=== PATIENT | female | born 1965 | race Caucasian/White ===

== ENCOUNTER 2020-05-29 13:18 | Observation (INO) | payer BC ==
[2020-05-29] MEDS ORDERED: SODIUM CHLORIDE 0.9% 1,000 ML IV STA (14:10)
[2020-05-29] MEDS ORDERED: MORPHINE SULFATE 4 MG/ML SYRINGE IV STA (14:10)
[2020-05-29] MEDS ORDERED: ONDANSETRON 4 MG/2 ML VIAL IVP STA (14:10)
--- NOTE | 2020-05-29 14:14 | ED ---
Abdominal Pain HPI - General Chief Complaint: Abdominal Pain Stated Complaint: Female Time Seen by Provider: 05/29/20 14:00 Source: patient, RN notes reviewed Mode of arrival: ambulatory Limitations: no limitations - History of Present Illness Initial Comments: Patient is a 53-year-old female comes emergency Department complaining of constipation. She noted that she tried taking several laxatives, milk of magnesia and other things to help move her bowel. She noted 90s helped in that she's been having small little bowel movements with mucus. She denied having any blood in her stool. She noted that she is having 10 out of 10 pain that is nonradiating and generalized. She noted that nothing is made the pain better and nothing makes the pain worse. Patient appeared in mild distress and pain while sitting up in bed. He says she had a history of constipation and bowel movement issues but can usually get things going with xtoz-osx-tkzxlxr remedies. He did state that she was nauseous and vomited once but is currently feeling a little bit better. She denied any chest pain shortness of breath diarrhea change in diet change in appetite change in weight headache fever fatigue chills - Related Data Allergies Allergy/AdvReac Type Severity Reaction Status Date / Time No Known Allergies Allergy Verified 05/29/20 16:50 Review of Systems ROS Statement: Those systems with pertinent positive or pertinent negative responses have been documented in the HPI. ROS Other: All systems not noted in ROS Statement are negative. Past Medical History Past Medical History: No Reported History History of Any Multi-Drug Resistant Organisms: None Reported Past Surgical History: Hysterectomy, Orthopedic Surgery Past Psychological History: No Psychological Hx Reported Smoking Status: Never smoker Past Alcohol Use History: Occasional Past Drug Use History: None Reported General Exam Limitations: no limitations General appearance: alert, in no apparent distress Head exam: Present: atraumatic, normocephalic, normal inspection Eye exam: Present: normal appearance, PERRL, EOMI. Absent: scleral icterus, conjunctival injection, periorbital swelling ENT exam: Present: normal exam, mucous membranes moist Neck exam: Present: normal inspection. Absent: tenderness, meningismus, lymphadenopathy Respiratory exam: Present: normal lung sounds bilaterally. Absent: respiratory distress, wheezes, rales, rhonchi, stridor Cardiovascular Exam: Present: regular rate, normal rhythm, normal heart sounds. Absent: systolic murmur, diastolic murmur, rubs, gallop, clicks GI/Abdominal exam: Present: soft, tenderness (Left middle quadrant In the lower abdomen on mild to moderate palpation), hypoactive bowel sounds. Absent: distended, guarding, rebound, rigid Extremities exam: Present: normal inspection, full ROM, normal capillary refill. Absent: tenderness, pedal edema, joint swelling, calf tenderness Neurological exam: Present: alert, oriented X3, CN II-XII intact Psychiatric exam: Present: normal affect, normal mood Skin exam: Present: warm, dry, intact, normal color. Absent: rash Course Vital Signs 05/29/20 13:52 Temperature 98.3 F Pulse Rate 113 H Respiratory 18 Rate Blood Pressure 101/59 O2 Sat by Pulse 97 Oximetry - Reevaluation(s) Reevaluation #1: 05/29/20 15:54 Sepsis called at 3:55 PM due to elevated white count and tachycardia. Medical Decision Making - Medical Decision Making 54-year-old female comes emergency room complaining of constipation and abdominal pain. Labs, CT ordered Pain and nausea medication ordered. Elevated white count and tachycardic. Discussed case with Dr. Juárez, decided to admit patient for further evaluation - Lab Data Result diagrams: 05/29/20 14:17 05/29/20 14:17 Lab Results 05/29/20 05/29/20 05/29/20 Range/Units 14:17 14:17 14:17 WBC 18.5 H (3.8-10.6) k/uL RBC 5.06 (3.80-5.40) m/uL Hgb 16.2 H (11.4-16.0) gm/dL Hct 48.5 H (34.0-46.0) % MCV 95.8 (80.0-100.0) fL MCH 32.1 (25.0-35.0) pg MCHC 33.5 (31.0-37.0) g/dL RDW 11.7 (11.5-15.5) % Plt Count 297 (150-450) k/uL MPV 6.6 Neutrophils % 85 % Lymphocytes % 9 % Monocytes % 5 % Eosinophils % 1 % Basophils % 0 % Neutrophils # 15.7 H (1.3-7.7) k/uL Lymphocytes # 1.7 (1.0-4.8) k/uL Monocytes # 0.8 (0-1.0) k/uL Eosinophils # 0.2 (0-0.7) k/uL Basophils # 0.1 (0-0.2) k/uL Sodium 137 (137-145) mmol/L Potassium 3.7 (3.5-5.1) mmol/L Chloride 100 (98-107) mmol/L Carbon Dioxide 29 (22-30) mmol/L Anion Gap 8 mmol/L BUN 19 H (7-17) mg/dL Creatinine 0.73 (0.52-1.04) mg/dL Est GFR (CKD-EPI)AfAm >90 (>60 ml/min/1.73 sqM) Est GFR (CKD-EPI)NonAf >90 (>60 ml/min/1.73 sqM) Glucose 98 (74-99) mg/dL Plasma Lactic Acid Tashi 1.3 (0.7-2.0) mmol/L Calcium 10.0 (8.4-10.2) mg/dL Total Bilirubin 0.4 (0.2-1.3) mg/dL AST 35 (14-36) U/L ALT 57 H (4-34) U/L Alkaline Phosphatase 100 (38-126) U/L Total Protein 7.9 (6.3-8.2) g/dL Albumin 4.8 (3.5-5.0) g/dL Amylase 227 H (30-110) U/L Lipase 248 (23-300) U/L - Radiology Data Radiology results: report reviewed, image reviewed Correlate for colitis. Postop changes. Small amount of free fluid in pelvis. Disposition Clinical Impression: Abdominal pain, Colitis Disposition: ADMITTED IP TO THIS HOSP Condition: Stable Is patient prescribed a controlled substance at d/c from ED?: No Referrals: None,Stated [Primary Care Provider] - 1-2 days Time of Disposition: 16:51
[2020-05-29 14:26] LABS: Basophils # (A) 0.1 k/uL (0-0.2); Basophils % (A) 0 %; Eosinophils # (A) 0.2 k/uL (0-0.7); Eosinophils % (A) 1 %; HCT 48.5 % (34.0-46.0); HGB 16.2 gm/dL (11.4-16.0); Lymphocytes # (A) 1.7 k/uL (1.0-4.8); Lymphocytes % (A) 9 %; MCH 32.1 pg (25.0-35.0); MCHC 33.5 g/dL (31.0-37.0); MCV 95.8 fL (80.0-100.0); Mean Platelet Volume 6.6; Monocytes # (A) 0.8 k/uL (0-1.0); Monocytes % (A) 5 %; Neutrophils # (A) 15.7 k/uL (1.3-7.7); Neutrophils % (A) 85 %; Platelet Count 297 k/uL (150-450); RBC 5.06 m/uL (3.80-5.40); RDW 11.7 % (11.5-15.5); WBC 18.5 k/uL (3.8-10.6)
[2020-05-29 14:36] LABS: ALT 57 U/L (4-34); AST 35 U/L (14-36); African American GFR (CKD) >90 (>60 ml/min/1.73 sqM); Albumin 4.8 g/dL (3.5-5.0); Alkaline Phosphatase 100 U/L (38-126); Amylase 227 U/L (30-110); Anion Gap 8 mmol/L; Blood Urea Nitrogen 19 mg/dL (7-17); Carbon Dioxide 29 mmol/L (22-30); Chloride 100 mmol/L (98-107); Glucose 98 mg/dL (74-99); Lipase 248 U/L (23-300); Non-African American GFR(CKD) >90 (>60 ml/min/1.73 sqM); Potassium 3.7 mmol/L (3.5-5.1); Sodium 137 mmol/L (137-145); Total Bilirubin 0.4 mg/dL (0.2-1.3); Total Protein 7.9 g/dL (6.3-8.2)
--- NOTE | 2020-05-29 15:28 | CT ---
EXAMINATION TYPE: CT abdomen pelvis w con DATE OF EXAM: 05/29/2020 COMPARISON: None HISTORY: midline suprapubic pelvic pain CT DLP: 582 mGycm Automated exposure control for dose reduction was used. TECHNIQUE: Helical acquisition of images from the lung bases through the pelvis have been completed. CONTRAST: Performed without Oral Contrast and with IV Contrast, patient injected with 100 mL of Isovue 300. FINDINGS: LUNG BASES: No significant abnormality is appreciated. AORTA: No significant abnormality is appreciated. LIVER/GB: No significant abnormality is appreciated. PANCREAS: No significant abnormality is seen. SPLEEN: No significant abnormality is seen. ADRENALS: No significant abnormality is seen. KIDNEYS: No significant abnormality is seen. REPRODUCTIVE ORGANS: Uterus and adnexal structures are not seen. Surgical clips are present deep to t he lower abdominal wall musculature BOWEL: Colonic wall thickening present in the rectosigmoid, large amount of retained fecal debris is present throughout much of the more proximal colon, the level of the descending colon, axial image # 49, coronal image #50 there is a relative narrowing which is thought likely to be transient. FREE AIR: No Free Air visible. ASCITES: Small amount of free fluid present in the pelvis.. PELVIC ADENOPATHY: None visualized. RETROPERITONEAL ADENOPATHY: No Retroperitoneal Adenopathy visible. URINARY BLADDER: No significant abnormality is seen. OSSEOUS STRUCTURES: There is a spinal curvature. Lumbarization of L5 is suspected, L1 show some catina mentary ribs.. IMPRESSION: CORRELATE FOR COLITIS. POSTOP CHANGES. SMALL AMOUNT OF FREE FLUID IN THE PELVIS.
[2020-05-29 16:36] LABS: Appearance,Urine Clear (Clear); Bilirubin,Urine Negative (Negative); Blood,Urine Small (Negative); Color,Urine Yellow; Glucose,Urine (UA) Negative (Negative); Ketones,Urine Trace (Negative); Leukocyte Esterase,Urine Negative (Negative); Nitrite,Urine Negative (Negative); Protein,Urine Negative (Negative); RBC,Urine 4 /hpf (0-5); Squamous Epithelial Cell,Urine <1 /hpf (0-4); Urobilinogen,Urine <2.0 mg/dL (<2.0); WBC,Urine 1 /hpf (0-5)
[2020-05-29 16:38] LABS: Specific Gravity,Urine >1.050 (1.001-1.035)
[2020-05-29] MEDS ORDERED: NALOXONE 0.4 MG/ML 1 ML VIAL IV PRN ×2 (16:48→17:11)
[2020-05-29] MEDS ORDERED: ONDANSETRON 4 MG/2 ML VIAL IVP PRN (16:48)
[2020-05-29] MEDS ORDERED: HYDROmorphone 1 MG/ML 1 ML SYRINGE IVP STA (16:50)
[2020-05-29] MEDS ORDERED: KETOROLAC 15 MG/ML 1 ML VIAL IVP STA (17:05)
[2020-05-29] MEDS ORDERED: ACETAMINOPHEN TAB 325 MG TAB PO PRN (17:11)
[2020-05-29] MEDS ORDERED: DOCUSATE 100 MG CAP PO PRN (17:11)
[2020-05-29] MEDS: SODIUM CHLORIDE 0.9% 1,000 ML IV SCH (17:11)
[2020-05-29] MEDS ORDERED: CAFF PO PRN (17:14)
[2020-05-29] MEDS ORDERED: BUTALB PO PRN (17:14)
[2020-05-29] MEDS ORDERED: ASPRIN PO PRN (17:14)
[2020-05-29] MEDS: metroNIDAZOLE-NS PMX 500 MG in SALINE 1 100ML.BAG IVPB SCH (17:22)
--- NOTE | 2020-05-29 18:13 | P.HPIM ---
History of Present Illness H&P Date: 05/29/20 Chief Complaint: abdominal pain 54 year old woman with history of movwdtot-dkqbbmmgyo-igbemqxefnhb on estradiol, anxiety/depression, HLD, and migraines presented for abdominal pain of sudden onset today. She describes pain as sharp to aching in nature. This is associated with mucous-like stool, with small amounts passing through over last 1-2 weeks. She had an episode of nausea/vomiting with emesis described as white/mucousy. She denies hematemesis/hematochezia/melena. She reports chills, but denies fevers. She denies chest pain, palps, syncope, presycnope, dizzi ness, dysuria, numbness/weakness of extremities. Pt provided me limited history otherwise at bedside due to being in distress from pain. She was evaluated by the ER, and CT scan demonstrated colitis with free fluid in the pelvis, as well as post-surgical changes of her hysterectomy. Lab work demo nstrated leukocytosis to 18, lactate was normal. She was started on broad spectrum abx and admitted for further work up. Review of Systems All Systems reviewed and pertinent positives and negatives noted in HPI, all other symptoms are negative Past Medical History Past Medical History: No Reported History History of Any Multi-Drug Resistant Organisms: None Reported Past Surgical History: Hysterectomy, Orthopedic Surgery Past Psychological History: No Psychological Hx Reported Smoking Status: Never smoker Past Alcohol Use History: Occasional Past Drug Use History: None Reported Medications and Allergies Home Medications Medication Instructions Recorded Confirmed Type Acyclovir [Zovirax] 400 mg PO DAILY 05/29/20 05/29/20 History Butalb/Asprin/Caff 50-325-40Mg 1 cap PO QID PRN 05/29/20 05/29/20 History [Fiorinal 50-325-40 MG] Estradiol [Estrace] 1 mg PO DAILY 05/29/20 05/29/20 History Meloxicam [Mobic] 7.5 mg PO HS 05/29/20 05/29/20 History Pantoprazole [Protonix] 40 mg PO DAILY 05/29/20 05/29/20 History Rosuvastatin Calcium [Crestor] 40 mg PO DAILY 05/29/20 05/29/20 History SUMAtriptan succinate [Imitrex] 50 mg PO DAILY PRN 05/29/20 05/29/20 History Vortioxetine Hydrobromide 20 mg PO HS 05/29/20 05/29/20 History [Trintellix] tiZANidine [Zanaflex] 4 mg PO HS 05/29/20 05/29/20 History Allergies Allergy/AdvReac Type Severity Reaction Status Date / Time No Known Allergies Allergy Verified 05/29/20 16:50 Physical Exam Osteopathic Statement: *. No significant issues noted on an osteopathic structural exam other than those noted in the History and Physical/Consult. Vitals: Vital Signs Temp Pulse Resp BP Pulse Ox 05/29/20 13:52 98.3 F 113 H 18 101/59 97 Intake and Output 05/29/20 05/29/20 05/29/20 06:59 14:59 22:59 Other: Weight 63.503 kg Gen: awake, alert in moderate distress from pain HEENT: normocephalic, atraumatic, good hearing acuity, moist mucous membranes Resp: good air exchange, breathing comfortably with no accessory muscle use CVS: good distal perfusion x 4, GI: soft, diffusely tender palpation, predominantly in the left lower quadrant, nondistended : no SPT, no CVAT, reyes catheter not present MSK: no pitting edema, no clubbing Neuro: non-focal, moving all extremities Psych: cooperative, anxious mood Results CBC & Chem 7: 05/29/20 14:17 05/29/20 14:17 Labs: Abnormal Lab Results - Last 24 Hours (Table) 05/29/20 05/29/20 05/29/20 Range/Units 14:17 14:17 16:15 WBC 18.5 H (3.8-10.6) k/uL Hgb 16.2 H (11.4-16.0) gm/dL Hct 48.5 H (34.0-46.0) % Neutrophils # 15.7 H (1.3-7.7) k/uL BUN 19 H (7-17) mg/dL ALT 57 H (4-34) U/L Amylase 227 H (30-110) U/L Ur Specific [place] >1.050 H (1.001-1.035) Urine Ketones Trace H (Negative) Urine Blood Small H (Negative) Assessment and Plan Assessment: 1. Procto-Colitis, unspecified etiology 2. Anxiety and Depression 3. History of Jckmvhqa-dxseyxwili-qewtydxjmwvj on estrogen 4. HLD 5. Migraines 54 year old woman with history of HLD, Migraines, salpingo -oophorecto-hysterectomy on estrogen, anxiety/depression presented with 1 day of acute abdominal pain, nausea/vomiting, and 1-2 weeks of constipation despite laxitive use and was found to have procto-colitis on CT A/P with small free fluid in the pelvis; admitted for further management and started on broad spectrum antibiotics with suspicion for infectious etiology. Plan: - admit to observation - ceftriaxone/flagyl in ER --> cipro/flagyl starting 05/29 - stool culture, pending - FOBT, pending - ESR/CRP, pending - GI consult, re: r/o inflammatory bowel disease - pain control: tylenol PRN + toradol PRN + morphine/dilaudid PRN - nausea control: zofran PRN - docusate BID - IVF: LR 75cc/hr - continue home PPI - continue home trintellix, xanax PRN - continue home fioricet PRN, imitrex PRN - continue daily acyclovir - continue home estradiol Full Code DVT PPx: heparin 5000 q8h
[2020-05-29] MEDS: HYDROmorphone 1 MG/ML 1 ML SYRINGE IVP PRN (21:19)
[2020-05-29] MEDS: tiZANidine 4 MG TAB PO SCH (21:21)
[2020-05-29] MEDS: VORTIOXETINE HYDROBROMIDE 20 MG TABLET PO SCH (21:21)
[2020-05-29] MEDS: CIPROFLOXACIN/DEXTROSE PMX 400 MG in DEXTROSE/WATER 1 200ML.BAG IVPB SCH (21:21)
[2020-05-30] MEDS: HEPARIN SODIUM,PORCINE 5,000 UNIT/ML 1 ML VIAL SQ SCH ×3 (00:42→15:25)
[2020-05-30] MEDS: metroNIDAZOLE-NS PMX 500 MG in SALINE 1 100ML.BAG IVPB SCH ×3 (00:43→15:25)
[2020-05-30] MEDS: HYDROmorphone 1 MG/ML 1 ML SYRINGE IVP PRN ×2 (02:56→08:31)
[2020-05-30] MEDS: ACYCLOVIR 200 MG CAP PO SCH (08:30)
[2020-05-30] MEDS: ATORVASTATIN 80 MG TAB PO SCH (08:30)
[2020-05-30] MEDS: PANTOPRAZOLE 40 MG TABLET PO SCH (08:30)
[2020-05-30] MEDS: SODIUM CHLORIDE 0.9% 1,000 ML IV SCH ×2 (08:31→20:53)
[2020-05-30] MEDS: CIPROFLOXACIN/DEXTROSE PMX 400 MG in DEXTROSE/WATER 1 200ML.BAG IVPB SCH ×2 (08:37→20:53)
[2020-05-30 09:23] LABS: Basophils # (A) 0.02 X 10*3/uL (0.00-0.10); Basophils % (A) 0.1 %; Eosinophils # (A) 0.05 X 10*3/uL (0.04-0.35); Eosinophils % (A) 0.4 %; HCT 38.5 % (37.2-46.3); HGB 12.6 g/dL (12.0-15.0); Lymphocytes # (A) 1.02 X 10*3/uL (0.90-5.00); Lymphocytes % (A) 7.5 %; MCH 31.5 pg (27.0-32.0); MCHC 32.7 g/dL (32.0-37.0); MCV 96.3 fL (80.0-97.0); Mean Platelet Volume 9.5 fL (9.5-12.2); Monocytes # (A) 1.47 X 10*3/uL (0.20-1.00); Monocytes % (A) 10.7 %; Neutrophils # (A) 11.05 X 10*3/uL (1.80-7.70); Neutrophils % (A) 80.8 %; Platelet Count 228 X 10*3/uL (140-440); RDW 11.9 % (11.5-14.5); WBC 13.68 X 10*3/uL (4.50-10.00)
[2020-05-30 09:45] LABS: African American GFR (CKD) 114.6 (60.0-200.0); Albumin 3.7 g/dL (3.80-4.90); Albumin/Globulin Ratio 2.64 (1.60-3.17); Anion Gap 8.3 mmol/L (4.00-12.00); BUN/Creat Ratio 28.57 Ratio (12.00-20.00); C Reactive Protein 6.5 mg/dL (0.0-0.8); Calcium 8.2 mg/dL (8.7-10.3); Carbon Dioxide 26.7 mmol/L (21.6-31.8); Globulin 1.4 g/dL (1.6-3.3); Non-African American GFR(CKD) 98.9 (60.0-200.0); Potassium 4.4 mmol/L (3.5-5.5); Total Bilirubin 0.4 mg/dL (0.2-1.2); Total Protein 5.1 g/dL (6.2-8.2)
[2020-05-30] MEDS: SUMAtriptan succinate 50 MG TAB PO PRN (10:23)
--- NOTE | 2020-05-30 13:07 | P.PN ---
Subjective Progress Note Date: 05/30/20 Patients pain is much better today, still present to some degree. Had rec'd 3 doses of dilaudid since my last evaluation. Pt does report some nausea this morning. Stool sample given, pending. Objective - Vital Signs Vital signs: Vital Signs Temp 98.2 F 05/30/20 07:00 Pulse 77 05/30/20 07:00 Resp 16 05/30/20 07:00 BP 102/66 05/30/20 07:00 Pulse Ox 97 05/30/20 07:00 Intake & Output 05/29/20 05/30/20 05/30/20 18:59 06:59 18:59 Weight 63.503 kg Other: Voiding Method Toilet Toilet # Voids 3 # Bowel Movements 1 - Exam Gen: awake, alert in moderate distress from pain HEENT: normocephalic, atraumatic, good hearing acuity, moist mucous membranes Resp: good air exchange, breathing comfortably with no accessory muscle use CVS: good distal perfusion x 4, GI: soft, diffusely tender palpation, predominantly in the left lower quadrant, nondistended : no SPT, no CVAT, reyes catheter not present MSK: no pitting edema, no clubbing Neuro: non-focal, moving all extremities Psych: cooperative, anxious mood - Labs CBC & Chem 7: 05/30/20 05:54 05/30/20 05:54 Labs: Abnormal Lab Results - Last 24 Hours (Table) 05/29/20 05/29/20 05/29/20 Range/Units 14:17 14:17 16:15 WBC 18.5 H (3.8-10.6) k/uL RBC (4.10-5.20) X 10*6/uL Hgb 16.2 H (11.4-16.0) gm/dL Hct 48.5 H (34.0-46.0) % Immature Gran # (0.00-0.04) X 10*3/uL Neutrophils # 15.7 H (1.3-7.7) k/uL Monocytes # (0.20-1.00) X 10*3/uL BUN 19 H (7-17) mg/dL BUN/Creatinine Ratio (12.00-20.00) Ratio Glucose (70-110) mg/dL Calcium (8.7-10.3) mg/dL ALT 57 H (4-34) U/L C-Reactive Protein (0.0-0.8) mg/dL Total Protein (6.2-8.2) g/dL Albumin (3.80-4.90) g/dL Globulin (1.6-3.3) g/dL Amylase 227 H (30-110) U/L Ur Specific [place] >1.050 H (1.001-1.035) Urine Ketones Trace H (Negative) Urine Blood Small H (Negative) Stool Occult Blood (Negative) 05/30/20 05/30/20 05/30/20 Range/Units 02:47 05:54 05:54 WBC 13.68 H (3.8-10.6) k/uL RBC 4.00 L (4.10-5.20) X 10*6/uL Hgb (11.4-16.0) gm/dL Hct (34.0-46.0) % Immature Gran # 0.07 H (0.00-0.04) X 10*3/uL Neutrophils # 11.05 H (1.3-7.7) k/uL Monocytes # 1.47 H (0.20-1.00) X 10*3/uL BUN (7-17) mg/dL BUN/Creatinine Ratio 28.57 H (12.00-20.00) Ratio Glucose 111 H (70-110) mg/dL Calcium 8.2 L (8.7-10.3) mg/dL ALT (4-34) U/L C-Reactive Protein 6.5 H (0.0-0.8) mg/dL Total Protein 5.1 L (6.2-8.2) g/dL Albumin 3.70 L (3.80-4.90) g/dL Globulin 1.4 L (1.6-3.3) g/dL Amylase (30-110) U/L Ur Specific [place] (1.001-1.035) Urine Ketones (Negative) Urine Blood (Negative) Stool Occult Blood Positive H (Negative) Assessment and Plan Assessment: 1. Procto-Colitis, unspecified etiology 2. Anxiety and Depression 3. History of Snhdzlnw-jlzmscvkri-lnehiasldaxk on estrogen 4. HLD 5. Migraines 54 year old woman with history of HLD, Migraines, teizostg-rasadrygnm-ircviscpjugb on estrogen, anxiety/depression presented with 1 day of acute abdominal pain, nausea/vomiting, and 1-2 weeks of constipation despite laxitive use and was found to have procto-colitis on CT A/P with small free fluid in the pelvis; admitted for further management and started on broad spectrum antibiotics with suspicion for infectious etiology. Plan: - admit to observation - ceftriaxone/flagyl in ER --> cipro/flagyl starting 05/29 - stool culture, pending - FOBT, positive - ESR/CRP, pending/6.5 - GI consult, re: r/o inflammatory bowel disease, pending - pain control: tylenol PRN + toradol PRN + morphine/dilaudid PRN - nausea control: zofran PRN - docusate BID - IVF: LR 75cc/hr - continue home PPI - continue home trintellix, xanax PRN - continue home fioricet PRN, imitrex PRN - continue daily acyclovir - continue home estradiol Full Code DVT PPx: heparin 5000 q8h
--- NOTE | 2020-05-30 17:00 | XR ---
2 view abdomen HISTORY: Pain and constipation 2 views the abdomen on 3 images Lung bases are clear. There is no evident bowel obstruction or pneumoperitoneum. Bone mineralization is maintained. Postop changes are noted with bhupinder overlying the pelvis. No evident pathologic calc ification, probable phleboliths within the pelvis. IMPRESSION: Nonspecific bowel gas pattern.
[2020-05-30 17:59] LABS: Erythrocyte Sedimentation Rate 5 mm/Hr (0-30)
[2020-05-30] MEDS: KETOROLAC 15 MG/ML 1 ML VIAL IVP PRN (20:52)
[2020-05-30] MEDS: ALPRAZolam 0.25 MG TAB PO PRN (20:52)
[2020-05-30] MEDS: VORTIOXETINE HYDROBROMIDE 20 MG TABLET PO SCH (20:52)
[2020-05-30] MEDS: tiZANidine 4 MG TAB PO SCH (20:52)
[2020-05-31] MEDS: metroNIDAZOLE-NS PMX 500 MG in SALINE 1 100ML.BAG IVPB SCH ×2 (00:29→07:20)
[2020-05-31] MEDS: HEPARIN SODIUM,PORCINE 5,000 UNIT/ML 1 ML VIAL SQ SCH ×2 (00:29→07:20)
[2020-05-31] MEDS ORDERED: SODIUM CHLORIDE 0.9% 1,000 ML IV ONE (03:12)
[2020-05-31] MEDS: KETOROLAC 15 MG/ML 1 ML VIAL IVP PRN (03:17)
[2020-05-31] MEDS: ALPRAZolam 0.25 MG TAB PO PRN (03:47)
[2020-05-31 07:38] VITALS: BP 100/60; PULSE 56; RESP 16; TEMP 97.6
[2020-05-31] MEDS ORDERED: polyethylene glycoL 3350 17 GM POWD.PACK PO SCH (09:00)
[2020-05-31] MEDS: ATORVASTATIN 80 MG TAB PO SCH (09:07)
[2020-05-31] MEDS: CIPROFLOXACIN/DEXTROSE PMX 400 MG in DEXTROSE/WATER 1 200ML.BAG IVPB SCH (09:07)
[2020-05-31] MEDS: ACYCLOVIR 200 MG CAP PO SCH (09:08)
[2020-05-31] MEDS: PANTOPRAZOLE 40 MG TABLET PO SCH (09:08)
[2020-05-31 09:28] LABS: Basophils % (A) 0 %; Eosinophils # (A) 0.2 k/uL (0-0.7); Eosinophils % (A) 3 %; HCT 35.2 % (34.0-46.0); Lymphocytes # (A) 0.9 k/uL (1.0-4.8); Lymphocytes % (A) 16 %; MCH 32.2 pg (25.0-35.0); MCHC 32.4 g/dL (31.0-37.0); MCV 99.2 fL (80.0-100.0); Mean Platelet Volume 6.9; Monocytes # (A) 0.3 k/uL (0-1.0); Monocytes % (A) 6 %; Neutrophils # (A) 4.1 k/uL (1.3-7.7); Neutrophils % (A) 72 %; Platelet Count 166 k/uL (150-450); RBC 3.55 m/uL (3.80-5.40); WBC 5.6 k/uL (3.8-10.6)
[2020-05-31 09:39] LABS: HGB 11.4 gm/dL (11.4-16.0)
[2020-05-31] MEDS: SODIUM CHLORIDE 0.9% 1,000 ML IV SCH (10:10)
[2020-05-31] MEDS: SUMAtriptan succinate 50 MG TAB PO PRN (10:23)
--- NOTE | 2020-05-31 12:02 | P.CONS ---
History of Present Illness - Reason for Consult Consult date: 05/30/20 Abdominal pain, abnormal computed tomography scan Requesting physician: Katie Camejo - Chief Complaint Abdominal pain, constipation - History of Present Illness 54-year-old female with a medical history significant for anxiety/depression, migraines and hyperlipidemia who presented to the hospital due to complaints of abdominal pain. She reports difficulty with constipation prior to presentation. The patient took laxatives and magnesium citrate secondary to her constipation and subsequently developed pain described as intense diffusely across the abdomen. She also took magnesium citrate which she vomited up. She reports passing small amount of jellylike clear substance from the rectum with a small hard bowel movement. Previously she had been given MiraLAX for treatment of constipation but does not take this regularly. Computed tomography scan on presentation significance for colonic wall thickening present to the rectosigmoid with a large amount of retained fecal debris in the proximal colon. On questioning she states her last colonoscopy was 1-2 years ago for evaluation of constipation in [facility]. She does report a large bowel movement after being admitted to the hospital with improvement of her abdominal pain. Currently on antibiotic therapy. Laboratory evaluation significant for CRP of 6.5, amylase 227, lipase 248, hemoglobin 12.6. Review of Systems REVIEW OF SYSTEMS: CONSTITUTIONAL: Denies any fevers, chills, weight change or fatigue. CARDIOVASCULAR: Denies any chest pain, palpitations high or low blood pressures RESPIRATORY: Denies any shortness of breath, hemoptysis or cough. GENITOURINARY: No dysuria or hematuria. MUSCULOSKELETAL: No weakness reported. SKIN: Denies any new rashes or lesions, jaundice or pallor. PSYCHIATRIC: Denies any depression or anxiety currently but does have a history of anxiety and depression. NEUROLOGY: Denies headache, denies any new focal deficits. EARS/NOSE/THROAT: No recent hearing change, congestion, nasal discharge or sore throat. EYES: No pain in eyes, discharge or change in vision. GASTROINTESTINAL: As per HPI. Past Medical History Past Medical History: No Reported History History of Any Multi-Drug Resistant Organisms: None Reported Past Surgical History: Hysterectomy, Orthopedic Surgery Past Anesthesia/Blood Transfusion Reactions: No Reported Reaction Past Psychological History: No Psychological Hx Reported Smoking Status: Never smoker Past Alcohol Use History: Occasional Past Drug Use History: None Reported - Past Family History Mother Family Medical History: Cancer Father Family Medical History: Cancer Medications and Allergies Home Medications Medication Instructions Recorded Confirmed Type Acyclovir [Zovirax] 400 mg PO DAILY 05/29/20 05/29/20 History Butalb/Asprin/Caff 50-325-40Mg 1 cap PO QID PRN 05/29/20 05/29/20 History [Fiorinal 50-325-40 MG] Estradiol [Estrace] 1 mg PO DAILY 05/29/20 05/29/20 History Meloxicam [Mobic] 7.5 mg PO HS 05/29/20 05/29/20 History Pantoprazole [Protonix] 40 mg PO DAILY 05/29/20 05/29/20 History Rosuvastatin Calcium [Crestor] 40 mg PO DAILY 05/29/20 05/29/20 History SUMAtriptan succinate [Imitrex] 50 mg PO DAILY PRN 05/29/20 05/29/20 History Vortioxetine Hydrobromide 20 mg PO HS 05/29/20 05/29/20 History [Trintellix] tiZANidine [Zanaflex] 4 mg PO HS 05/29/20 05/29/20 History Acetaminophen Tab [Tylenol] 650 mg PO Q6HR PRN tab 05/31/20 Rx Ciprofloxacin HCl [Cipro] 500 mg PO BID #10 tab 05/31/20 Rx Docusate [Colace] 100 mg PO BID PRN #60 cap 05/31/20 Rx metroNIDAZOLE [Flagyl] 500 mg PO TID #15 tab 05/31/20 Rx polyethylene glycoL 3350 [Miralax] 17 gm PO DAILY #30 powd.pack 05/31/20 Rx Allergies Allergy/AdvReac Type Severity Reaction Status Date / Time No Known Allergies Allergy Verified 05/29/20 16:50 Physical Exam Vitals: Vital Signs Temp Pulse Pulse Resp BP BP Pulse Ox 05/30/20 07:00 98.2 F 77 16 102/66 97 05/30/20 02:00 98.7 F 97 18 106/68 98 05/30/20 01:54 82 18 05/29/20 23:30 82 18 05/29/20 23:11 98.1 F 82 18 105/66 98 05/29/20 18:04 98.5 F 81 16 116/73 97 05/29/20 17:21 98.1 F 82 18 105/66 98 02/09/21 13:52 98.3 F 113 H 18 101/59 97 Intake and Output 05/29/20 05/30/20 05/30/20 22:59 06:59 14:59 Other: Voiding Method Toilet Toilet # Voids 1 3 # Bowel Movements 1 Weight 63.503 kg On physical examination, patient appears comfortable in no apparent distress. HEAD: Normocephalic, atraumatic. EYES: No scleral icterus. No conjunctival injection. MOUTH: No lesions, tongue midline. NECK: Trachea midline, no gross abnormalities. CHEST: Clear to auscultation with no wheezing or rhonchi appreciated. HEART: Regular rate and rhythm. ABDOMEN: Soft, thin and nontender to palpation. Bowel sounds are positive. No organomegaly. No guarding or rigidity. EXTREMITIES: No pedal edema. SKIN: No rashes, no jaundice. NEUROLOGIC: Alert and oriented x3. No focal deficits. Results CBC & Chem 7: 05/31/20 09:00 05/30/20 05:54 Labs: Abnormal Lab Results - Last 24 Hours (Table) 05/29/20 05/29/20 05/29/20 Range/Units 14:17 14:17 16:15 WBC 18.5 H (3.8-10.6) k/uL RBC (4.10-5.20) X 10*6/uL Hgb 16.2 H (11.4-16.0) gm/dL Hct 48.5 H (34.0-46.0) % Immature Gran # (0.00-0.04) X 10*3/uL Neutrophils # 15.7 H (1.3-7.7) k/uL Monocytes # (0.20-1.00) X 10*3/uL BUN 19 H (7-17) mg/dL BUN/Creatinine Ratio (12.00-20.00) Ratio Glucose (70-110) mg/dL Calcium (8.7-10.3) mg/dL ALT 57 H (4-34) U/L C-Reactive Protein (0.0-0.8) mg/dL Total Protein (6.2-8.2) g/dL Albumin (3.80-4.90) g/dL Globulin (1.6-3.3) g/dL Amylase 227 H (30-110) U/L Ur Specific [place] >1.050 H (1.001-1.035) Urine Ketones Trace H (Negative) Urine Blood Small H (Negative) 05/30/20 05/30/20 Range/Units 05:54 05:54 WBC 13.68 H (3.8-10.6) k/uL RBC 4.00 L (4.10-5.20) X 10*6/uL Hgb (11.4-16.0) gm/dL Hct (34.0-46.0) % Immature Gran # 0.07 H (0.00-0.04) X 10*3/uL Neutrophils # 11.05 H (1.3-7.7) k/uL Monocytes # 1.47 H (0.20-1.00) X 10*3/uL BUN (7-17) mg/dL BUN/Creatinine Ratio 28.57 H (12.00-20.00) Ratio Glucose 111 H (70-110) mg/dL Calcium 8.2 L (8.7-10.3) mg/dL ALT (4-34) U/L C-Reactive Protein 6.5 H (0.0-0.8) mg/dL Total Protein 5.1 L (6.2-8.2) g/dL Albumin 3.70 L (3.80-4.90) g/dL Globulin 1.4 L (1.6-3.3) g/dL Amylase (30-110) U/L Ur Specific [place] (1.001-1.035) Urine Ketones (Negative) Urine Blood (Negative) CT scan - abdomen: report reviewed (Computed tomography scan of the abdomen with findings of colonic colon thickening present to the rectosigmoid with large amounts of retained fecal debris in the proximal colon.) Assessment and Plan (1) Colitis Narrative/Plan: 54-year-old female with multiple medical comorbidities including chronic constipation presenting with complaints of abdominal pain. Computed tomography scan showed nonspecific colitis the level of the rectosigmoid and a large amount of retained stool in the proximal colon. Unclear etiology, may be normal changes related to underlying constipation, ischemic or infectious colitis or other etiology. Currently patient is reporting improved symptoms after a bowel movement is on broad-spectrum antibiotic therapy. Current Visit: Yes Status: Acute Code(s): K52.9 - NONINFECTIVE GASTROENTERITIS AND COLITIS, UNSPECIFIED SNOMED Code(s): 38315719 (2) Abdominal pain Current Visit: Yes Status: Acute Code(s): R10.9 - UNSPECIFIED ABDOMINAL PAIN SNOMED Code(s): 87017325 Plan: Supportive care Okay for liquid diet, advance as tolerated Continue monitor CBC, BMP, LFTs Stool studies ordered Computed tomography scan of the abdomen reviewed Extensive discussion with the patient on the need for bowel regimen moving forward Continue broad-spectrum antibiotic therapy Recommend repeat colonoscopy in 4-6 weeks to check for healing in the setting of possible colitis Okay for discharge when otherwise medically stable Thank you for allowing us dysphagia in the care of the patient
--- NOTE | 2020-05-31 12:40 | P.DS ---
Providers Date of admission: 05/29/20 16:48 Expected date of discharge: 05/31/20 Attending physician: Katie Camejo MD Consults: 05/29/20 17:46 Consult Physician Routine Consulting Provider: Brendan Mckinney Consult Reason/Comments: Colitis Do you want consulting provider notified?: Yes Primary care physician: Stated None Hospital Course: 1. Procto-Colitis, unspecified etiology 2. Anxiety and Depression 3. History of Rlvmuznr-zvgwvgarev-tvmtwoxrtekh on estrogen 4. HLD 5. Migraines 54 year old woman with history of HLD, Migraines, bklhvuvx-tbvngelhue-vvauaxpglqta on estrogen, anxiety/depression presented with 1 day of acute abdominal pain, nausea/vomiting, and 1-2 weeks of constipation despite laxitive use and was found to have procto-colitis on CT A/P with small free fluid in the pelvis; admitted for further management and started on broad spectrum antibiotics with suspicion for infectious etiology. Patients pain improved on antibiotics and with stool softener. She had FOBT positive stool as expected, but stool culture was pending. C Diff was negative. CRP was slightly elevated at 6.5. GI was consulted and recommended good bowel regimen for 4-6 w eeks and completion of antibiotics with follow up in office for colonoscopy. Patient was tolerating a GI soft diet on day of discharge and was sent home with stool softener and oral abx to complete a 7 day course with cipro/flagyl. Patient Condition at Discharge: Good Plan - Discharge Summary Discharge Rx Participant: No New Discharge Prescriptions: New Ciprofloxacin HCl [Cipro] 500 mg PO BID #10 tab Docusate [Colace] 100 mg PO BID PRN #60 cap PRN Reason: Constipation metroNIDAZOLE [Flagyl] 500 mg PO TID #15 tab polyethylene glycoL 3350 [Miralax] 17 gm PO DAILY #30 powd.pack Acetaminophen Tab [Tylenol] 650 mg PO Q6HR PRN tab PRN Reason: Mild Pain Or Fever > 100.5 Continue tiZANidine [Zanaflex] 4 mg PO HS SUMAtriptan succinate [Imitrex] 50 mg PO DAILY PRN PRN Reason: Migraine Headache Rosuvastatin Calcium [Crestor] 40 mg PO DAILY Pantoprazole [Protonix] 40 mg PO DAILY Meloxicam [Mobic] 7.5 mg PO HS Estradiol [Estrace] 1 mg PO DAILY Acyclovir [Zovirax] 400 mg PO DAILY Butalb/Asprin/Caff 50-325-40Mg [Fiorinal 50-325-40 MG] 1 cap PO QID PRN PRN Reason: Migraine Headache Vortioxetine Hydrobromide [Trintellix] 20 mg PO HS Discharge Medication List Acyclovir [Zovirax] 400 mg PO DAILY 05/29/20 [History] Butalb/Asprin/Caff 50-325-40Mg [Fiorinal 50-325-40 MG] 1 cap PO QID PRN 05/29/20 [History] Estradiol [Estrace] 1 mg PO DAILY 05/29/20 [History] Meloxicam [Mobic] 7.5 mg PO HS 05/29/20 [History] Pantoprazole [Protonix] 40 mg PO DAILY 05/29/20 [History] Rosuvastatin Calcium [Crestor] 40 mg PO DAILY 05/29/20 [History] SUMAtriptan succinate [Imitrex] 50 mg PO DAILY PRN 05/29/20 [History] Vortioxetine Hydrobromide [Trintellix] 20 mg PO HS 05/29/20 [History] tiZANidine [Zanaflex] 4 mg PO HS 05/29/20 [History] Acetaminophen Tab [Tylenol] 650 mg PO Q6HR PRN tab 05/31/20 [Rx] Ciprofloxacin HCl [Cipro] 500 mg PO BID #10 tab 05/31/20 [Rx] Docusate [Colace] 100 mg PO BID PRN #60 cap 05/31/20 [Rx] metroNIDAZOLE [Flagyl] 500 mg PO TID #15 tab 05/31/20 [Rx] polyethylene glycoL 3350 [Miralax] 17 gm PO DAILY #30 powd.pack 05/31/20 [Rx] Follow up Appointment(s)/Referral(s): None,Stated [Primary Care Provider] - 1-2 days Brendan Mckinney MD [STAFF PHYSICIAN] - 1 Week Discharge Disposition: HOME SELF-CARE
--- NOTE | 2020-05-31 15:25 | P.PN ---
Subjective Progress Note Date: 05/31/20 Principal diagnosis: Abdominal pain Patient seen and examined lying in bed. States her abdominal pain has improved significantly. Denies any nausea or vomiting through the night. States she's not had a bowel movement since admission. Abdominal x-ray ordered and reviewed showing no signs of stool burden, ileus, or obstruction. Objective - Vital Signs Vital signs: Vital Signs Temp 97.6 F 05/31/20 07:00 Pulse 56 L 05/31/20 07:00 Resp 16 05/31/20 07:00 BP 100/60 05/31/20 07:00 Pulse Ox 99 05/31/20 07:00 Intake & Output 05/30/20 05/31/20 05/31/20 18:59 06:59 18:59 Intake Total 925 1000 Balance 925 1000 Intake: Intake, IV Titration 825 1000 Amount Ciprofloxacin/Dextrose 200 Pmx 400 mg In Dextrose/ Water 1 200ml.bag @ 200 mls/hr IVPB BID [facility] Rx#: [id number] Sodium Chloride 0.9% 1, 525 000 ml @ 75 mls/hr IV . [id number] [facility] Rx#:[id number] Sodium Chloride 0.9% 1, 1000 000 ml @ 999 mls/hr IV . Q1H1M [facility] Rx#:[id number] metroNIDAZOLE-NS PMX 500 100 mg In Saline 1 100ml.bag @ 100 mls/hr IVPB Q8H [facility] Rx#:[id number] Oral 100 Other: Voiding Method Toilet Toilet Toilet # Voids 2 2 - Exam General appearance: The patient is alert, oriented, appears in no acute distress. HET: Head is normocephalic and atraumatic. Conjunctiva pink. Sclera anicteric. Neck: Supple without lymphadenopathy. Abdomen: Soft, mild lower abdominal tenderness, nondistended with bowel sounds. No guarding or rigidity. Extremities: Normal skin color and turgor. No pedal edema Skin: No rashes, no jaundice Neurological: No focal deficits. Alert and oriented 3. - Labs CBC & Chem 7: 05/31/20 09:00 05/30/20 05:54 Labs: Abnormal Lab Results - Last 24 Hours (Table) 05/30/20 05/30/20 05/30/20 Range/Units 02:47 05:54 05:54 WBC 13.68 H (4.50-10.00) X 10*3/uL RBC 4.00 L (4.10-5.20) X 10*6/uL Immature Gran # 0.07 H (0.00-0.04) X 10*3/uL Neutrophils # 11.05 H (1.80-7.70) X 10*3/uL Monocytes # 1.47 H (0.20-1.00) X 10*3/uL BUN/Creatinine Ratio 28.57 H (12.00-20.00) Ratio Glucose 111 H (70-110) mg/dL Calcium 8.2 L (8.7-10.3) mg/dL C-Reactive Protein 6.5 H (0.0-0.8) mg/dL Total Protein 5.1 L (6.2-8.2) g/dL Albumin 3.70 L (3.80-4.90) g/dL Globulin 1.4 L (1.6-3.3) g/dL Stool Occult Blood Positive H (Negative) Microbiology - Last 24 Hours (Table) 05/29/20 17:20 Blood Culture - Preliminary Blood No Growth after 24 hours 05/30/20 02:47 Stool Culture - Preliminary Stool Assessment and Plan (1) Abdominal pain Narrative/Plan: 54-year-old female with multiple medical comorbidities including chronic constipation presenting with complaints of abdominal pain. Computed tomography scan showed nonspecific colitis the level of the rectosigmoid and a large amount of retained stool in the proximal colon. Unclear etiology, may be normal changes related to underlying constipation, ischemic or infectious colitis or other etiology. Currently patient is reporting improved symptoms after a bowel movement is on broad-spectrum antibiotic therapy. Status: Acute Code(s): R10.9 - UNSPECIFIED ABDOMINAL PAIN SNOMED Code(s): 19916199 (2) Colitis Status: Acute Code(s): K52.9 - NONINFECTIVE GASTROENTERITIS AND COLITIS, UNSPECIFIED SNOMED Code(s): 93301240 Plan: [facility] Advance diet as tolerated Stool studies ordered, pending Computed tomography scan of the abdomen reviewed Extensive discussion with patient regarding need for regular bowel regimen moving forward, continue with daily MiraLAX may titrate as needed Continue broad-spectrum antibiotic therapy Recommend repeat colonoscopy in 4-6 weeks to check for healing in the setting of possible colitis, this was discussed with patient Okay for discharge from a gastroenterology standpoint once otherwise medically stable Thank you for this consultation Dr. Mckinney I agree with the dictator's note, documented as a scribe by Cecille Santos.
== END 2020-05-31 13:51 | disposition home or self-care (01) ==
LOC: EC 13:18 → 6NMEDSUR 16:48
PROVIDERS: ADMIT Internal Medicine; ATTEND Internal Medicine
DX: K51.30 Ulcerative (chronic) rectosigmoiditis without complications (principal); R18.8 Other ascites; F41.9 Anxiety disorder, unspecified; F32.9 Major depressive disorder, single episode, unspecified; E78.5 Hyperlipidemia, unspecified; G43.909 Migraine, unspecified, not intractable, without status migrainosus; Z87.19 Personal history of other diseases of the digestive system; Z90.710 Acquired absence of both cervix and uterus; Z98.890 Other specified postprocedural states; Z79.890 Hormone replacement therapy; Z90.79 Acquired absence of other genital organ(s); Z79.899 Other long term (current) drug therapy; Z79.1 Long term (current) use of non-steroidal anti-inflammatories (NSAID); Z80.9 Family history of malignant neoplasm, unspecified
CPT/HCPCS: 96376 ×3; 96361; 96366 ×3; 96367; 96372 ×2; 96365; 96375; 99285; 36415; 80053 ×2; 85652; 82150; 83605; 83690; 83735; 85025 ×3; 86140; 82272; 81001; 87040; 87045; 87046; 87635; 74019; 74177; G0378 ×3; J2270; J1644 ×2; J2405 ×2; J0696; J0744 ×3; J1170 ×2; J1885 ×3; Q9967

== ENCOUNTER → 2022-02-03 | Outpatient (CLI) | payer BC ==
--- NOTE | 2022-02-03 17:25 | CT ---
EXAMINATION TYPE: CT urogram wo/w con CT DLP: 2445 mGycm, Automated exposure control for dose reduction was used. DATE OF EXAM: 02/03/2022 4:45 PM COMPARISON: CT abdomen pelvis most recent from 05/29/2020. CLINICAL INDICATION:Female, 56 years old with history of R31.0 GROSS HEMATURIA, Gross hematuria, clot s and pain. Hx bladder mesh, hysterectomy, hernia repair TECHNIQUE: Urogram with imaging of the abdomen and pelvis. Coronal and sagittal reformats were performed. No 2D and 3D reconstructions are performed to assist visualization of the urinary tract on a separate works tation. Contrast used:70 mL of Isovue 300 with IV Contrast, Oral contrast used: None. FINDINGS: GENITOURINARY: RIGHT KIDNEY AND URETER: No calculi. No hydronephrosis or hydroureter. No renal mass or other lesions . No urothelial lesions: no filling defect, dilation, stricture or wall thickening. LEFT KIDNEY AND URETER: No calculi. No hydronephrosis or hydroureter. No renal mass or other lesions. No urothelial lesions: no filling defect, dilation, stricture or wall thickening. URINARY BLADDER: Limited evaluation secondary to partial filling of the bladder with excreted IV cont rast. No calculi or obvious mass. REPRODUCTIVE: Unremarkable. ABDOMEN LIVER: Unremarkable. GALLBLADDER AND BILE DUCTS: Unremarkable PANCREAS: Unremarkable. SPLEEN: Unremarkable. ADRENAL GLANDS: Unremarkable. STOMACH AND BOWEL: . No evidence of bowel obstruction. PERITONEUM: No evidence of pneumoperitoneum, free fluid, or adenopathy. VASCULATURE: No aortic aneurysm. MUSCULOSKELETAL: No acute osseous abnormalities. Grade 1 1 anterolisthesis of L4 and L5. Disc bulging at L3-L4 and L4-L5. SOFT TISSUE/ABDOMINAL WALL: Postsurgical changes with multiple surgical clips in the lower bladder. LOWER CHEST: No significant findings. IMPRESSION: 1. No evidence of urolithiasis or renal/urothelial neoplasm. Limited evaluation of the anterior bladd er. 2. Postsurgical changes or intra-abdominal consistent with provided history.
== END | disposition home or self-care (01) ==
LOC: RADCTMAIN 14:54
PROVIDERS: ATTEND Urology
DX: R31.0 Gross hematuria (principal)
CPT/HCPCS: 74178; 74400; Q9967